=== PATIENT | female | born 1990 | race Caucasian/White ===

== ENCOUNTER 2021-06-22 13:47 | Outpatient (CLI) | payer OTHER, SELFPAY ==
--- NOTE | ~2021-06-22 | CT_ITS ---
EXAMINATION: CT abdomen pelvis wo con DATE: 06/22/2021 14:30 INDICATION: Abdominal pain. Kidney disease. Umbilical hernia. TECHNIQUE: Computed tomography (CT) of the abdomen and pelvis was performed without intravenous contr ast. Automated exposure control and iterative reconstruction technique were employed. The dose-length product was 239.77 mGy-cm. COMPARISON: None FINDINGS: Lung bases are clear. Heart size is normal. No pericardial or pleural effusion. Liver, gallbladder, s pleen, pancreas, bilateral adrenal glands and kidneys are normal. No evident urolithiasis or hydronep hrosis. Normal appendix. Bladder and anteverted uterus are normal. There is inflammatory stranding in the pelvis surrounding heterogeneous masses at both the left and right adnexal regions with lower at tenuation region suggesting a partially cystic. The mass are difficult to distinguish from the adjace nt bowel measuring approximately 4.5 cm maximal diameter on the right and 5 cm on the left. No bowel obstruction. Normal appendix. Small fat-containing umbilical hernia. No evident pathologically enlarg ed lymphadenopathy in the abdomen or pelvis. Thoracolumbar dextrocurvature. Small sclerotic bone gerardo nd at the right pubic body. IMPRESSION: 1. Inflammatory stranding centered in the pelvis surrounding bilateral heterogeneous adnexal masses m easuring 4.5 cm on the right and 5 cm on the left. Given location is most likely represent complex ov drake cysts including hemorrhagic cyst or less likely cystic ovarian neoplasm. Other less likely etio logies would include pelvic abscesses of indeterminate etiology, ectopic in the appropriate clinical setting or pelvic inflammatory disease with tubo-ovarian abscesses. Assessment is limited b y the absence of intravenous contrast and would consider further evaluation with either pelvic ultras ound or repeat CT with contrast. Reviewed, dictated and finalized at location [facility] IMPRESSION: 1. Inflammatory stranding centered in the pelvis surrounding bilateral heteroge neous adnexal masses measuring 4.5 cm on the right and 5 cm on the left. Given location is most likely represent complex ovarian cysts including hemorrhagic c yst or less likely cystic ovarian neoplasm. Other less likely etiologies would include pelvic abscesses of indeterminate etiology, ectopic in the ap propriate clinical setting or pelvic inflammatory disease with tubo-ovarian abs cesses. Assessment is limited by the absence of intravenous contrast and would consider further evaluation with either pelvic ultrasound or repeat CT with con trast.
== END 2021-06-22 13:48 | disposition home or self-care (01) ==
LOC: ANHIMG 13:50
PROVIDERS: PCP Pediatrics; Visit Provider Nurse Practitioner Family
DX: R10.9 Unspecified abdominal pain (principal); N28.9 Disorder of kidney and ureter, unspecified; K42.9 Umbilical hernia without obstruction or gangrene; Z76.89 Persons encountering health services in other specified circumstances
CPT/HCPCS: 74176